=== PATIENT | female | born 1955 | race Caucasian/White ===

== ENCOUNTER → 2021-01-22 | Outpatient (CLI) | payer MEDICARE ==
--- NOTE | 2021-01-22 17:04 | RAD ---
EXAM: Lumbar spine, 2 views. HISTORY: Spondylolisthesis. COMPARISON: None. FINDINGS: Lateral flexion and extension views lumbar spine are obtained. There is 3 mm grade 1 cesar listhesis of L4 and L5 with extension which does not change with flexion. There is 2 mm grade 1 anter olisthesis of L3 on L4 with flexion which reduces to normal alignment with extension. There is multil evel endplate remodeling. There is facet arthropathy predominantly at the lumbosacral junction. There are few small endplate Schmorl's nodes. IMPRESSION: 1. Minimal grade 1 anterolisthesis of L4 and L5 which does not change between flexion and extension. 2. Minimal grade 1 anterolisthesis of L3 on L4 with flexion. 3. Multilevel degenerative change, primarily at the lumbosacral junction. Electronically signed by: Kim Thompson MD (01/22/2021 5:01 PM) [id number]
== END ==
LOC: RAD 15:00
PROVIDERS: ATTEND Neurological Surgery
DX: M47.817 Spondylosis without myelopathy or radiculopathy, lumbosacral region (principal); M43.16 Spondylolisthesis, lumbar region
CPT/HCPCS: 72120

== ENCOUNTER → 2021-01-29 | Outpatient (CLI) | payer MEDICARE ==
[~2021-01-29] MED LIST: ASPI-886 PO; ATEN25TA PO; CHOL10004 PO; CLON0.2T PO; CRAN200C2 PO; CRESTOR5 MG PO; DOCU-109 PO; ESCITALOPRAM OX20 MG PO; ESTR0.62 PO; GABA600T7 PO; LIDO5CRE9 TP; METF500T16 PO; OXYC-325 PO; OXYC5CAP PO; PHEN-444 PO; UBID50TA PO; ZOLP5TAB5 PO
--- NOTE | 2021-01-29 15:36 | EKG ---
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
[2021-01-29 15:54] LABS: BASO % 0 % (0-3); EOS # 0.1 x10^3/uL (0.0-0.7); EOS % 1 % (0-3); HEMATOCRIT 38.7 % (36.0-47.0); HEMOGLOBIN 13.1 g/dL (12.0-15.5); LYMPH # 1.4 x10^3/uL (1.0-4.8); LYMPH % 16 % (24-48); MEAN CORPUSCULAR HEMOGLOBIN 29 pg (25-35); MEAN CORPUSCULAR HGB CONC 34 g/dL (31-37); MEAN CORPUSCULAR VOLUME 86 fL (79-100); MONO # 0.6 x10^3/uL (0.0-1.1); MONO % 7 % (0-9); NEUT # 6.8 x10^3/uL (1.8-7.7); NEUT % 76 % (31-73); PLATELET COUNT 209 x10^3/uL (140-400); RED CELL DISTRIBUTION WIDTH 13.1 % (11.5-14.5); WHITE BLOOD COUNT 8.9 x10^3/uL (4.0-11.0)
[2021-01-29 16:10] LABS: ALBUMIN/GLOBULIN RATIO 0.8 (1.0-1.7); GFR 55.8; POTASSIUM 4.3 mmol/L (3.5-5.1); TOTAL BILIRUBIN 0.2 mg/dL (0.2-1.0); TOTAL PROTEIN 6.6 g/dL (6.4-8.2)
[2021-01-31 20:34] LABS: HEMOGLOBIN A1C 6.2 % (4.8-5.6)
== END ==
LOC: SURGPAT 13:44
PROVIDERS: ATTEND Neurological Surgery
DX: Z01.818 Encounter for other preprocedural examination (principal); M48.062 Spinal stenosis, lumbar region with neurogenic claudication; M54.16 Radiculopathy, lumbar region
CPT/HCPCS: 36415; 80053; 83036; 85025; 87641; 93005

== ENCOUNTER 2021-02-04 06:49 | Observation (INO) | payer MEDICARE ==
[2021-01-29 15:06] VITALS: BP 121/68
--- NOTE | 2021-01-31 13:17 | PREOP HP ---
DATE OF SERVICE: 02/04/2021 PREOPERATIVE HISTORY AND PHYSICAL HISTORY OF PRESENT ILLNESS: The patient is a pleasant 65-year-old who is having difficulty with low back pain and pain that radiates to her left hip and buttock and posterolateral thigh, stopping above the knee. She reports having problems with low back pain for years. She said the problem is slowly worsening. About a year ago, she developed left leg pain. She said her pain can reach 10/10. She said her pain is usually 4-6/10 and constant. Lying down or sitting in a car or walking makes the problem worse. Sitting with her legs elevated can help. She has been taking oxycodone for many years. She has had TENS unit, physical therapy, chiropractic treatment, lumbar epidural steroid injections, trigger point injections for many years. Recently, surgery was recommended, which was a decompression and instrumented fusion at L4-5 by another surgeon. CURRENT MEDICATIONS: Zolpidem, vitamin D3, rosuvastatin, Premarin, Percocet, metformin, lidocaine, gabapentin, clonidine, atenolol, aspirin. PAST MEDICAL HISTORY: Hypertension. PAST SURGICAL HISTORY: Hysterectomy and foot surgery. FAMILY HISTORY: Cancer, diabetes, hypertension, spine problems. SOCIAL HISTORY: Retired, , nonsmoker. ALLERGIES: SULFA, LATEX GLOVES. REVIEW OF SYSTEMS: A 12-point review of systems was performed and is noncontributory except that mentioned above. PHYSICAL EXAMINATION: GENERAL: Alert, pleasant, in no acute distress. HEAD: Normocephalic, atraumatic. SKIN: Warm and dry. MUSCULOSKELETAL: Lumbar paraspinal muscle bulk is normal, restricted range of motion of the lumbar spine, ensh-do-uhnysdvk tenderness at the lower lumbar spine with palpation, normal range of motion of the lower extremities bilaterally. EXTREMITIES: No clubbing, cyanosis or edema. NEUROLOGIC: Alert and oriented x 3. Normal recent and remote memory, strength is 5/5 in the lower extremities, sensory is intact to light touch in the lower extremities, reflexes were present and symmetric in the lower extremities bilaterally, negative straight leg raising bilaterally, normal gait. IMAGING: I reviewed a lumbar MRI scan from 01/17/2021. That study has trefoil type marked central spinal canal stenosis at L3-4 with marked left neural foraminal stenosis. At L4-5, there is moderate trefoil type canal stenosis and moderate left lateral recess stenosis. There is a slight anterolisthesis at L4-5. We also reviewed lumbar/flexion extension x-rays. There was no motion seen. ASSESSMENT AND PLAN: We have recommended a decompressive surgery at L3-4 and L4-5. We spoke about the surgery including the rationale, technique, risks and expected postoperative course. She understands and would like to proceed. GATO DR: Garland TID: [id number] [facility]
[~2021-02-04] VITALS: Ht 161.3 cm; Wt 82.4 kg
[~2021-02-04 06:49] MED LIST changes: +0.9 % SODIUM CHLORIDE 20 ML VIAL. IJ ONE; +DEXAMETHASONE SOD PHOS 4 MG/ML VIAL ONE; -DOCU-109 PO; +GLYCOPYRROLATE 1 MG/5 ML VIAL. ONE; +HYDROmorphone 2 MG/ML VIAL IVP PRN; +IV RINGERS,LACTATED 1000ML 1,000 ML IV SCH; +LIDOCAINE 2% PF 5 ML VIAL. ONE; +MIDAZOLAM HCL/PF 2 MG/2 ML VIAL. ONE; +MORPHINE SULFATE 2 MG/ML INJ. IVP PRN; +ONDANSETRON PF 4 MG/2 ML VIAL. ONE; +PHENYLEPHRINE 10 MG/ML VIAL. ONE; +PHENYLEPHRINE in 0.9% NACL PF 1 MG/10 ML SYRINGE. IV ONE; +PROCHLORPERAZINE 10 MG/2 ML VIAL. IVP PRN; +PROPOFOL 10 MG/ML (20ML) VIAL. IV ONE; +PROPOFOL 50 ML IV ONE; +REMIFENTANIL 1 MG VIAL. IV ONE; +ROCURONIUM 50 MG/5 ML VIAL. ONE; +ceFAZolin SODIUM 1 GM in IV NORMAL SALINE 1000ML BAG 1,000 ML IRR ONE; +fentaNYL PF VIAL 100 MCG/2 ML VIAL IVP PRN; +fentaNYL PF VIAL 100 MCG/2 ML VIAL ONE
[2021-02-04] MEDS ORDERED: GELATIN SPONGE SIZE 100. ONE (07:01)
[2021-02-04] MEDS ORDERED: THROMBIN TOPICAL 20,000 UNIT SPRAY.SYRN KIT TP ONE (07:01)
[2021-02-04] MEDS ORDERED: BUPIVACAINE-EPI 0.5%-1:200000 MPF 30 ML VIAL. ONE (07:01)
[2021-02-04] MEDS ORDERED: KETOROLAC 60 MG/2 ML VIAL. ONE (07:01)
[2021-02-04 07:10] VITALS: BP 141/74
[2021-02-04] MEDS ORDERED: HYDROmorphone 2 MG/ML VIAL ONE (07:34)
[2021-02-04] MEDS ORDERED: 0.9 % SODIUM CHLORIDE 20 ML VIAL. IJ ONE (07:35)
[2021-02-04] MEDS ORDERED: REMIFENTANIL 1 MG VIAL. IV ONE (08:04)
[2021-02-04] MEDS ORDERED: PROPOFOL 50 ML IV ONE (08:41)
[2021-02-04] MEDS ORDERED: SUGAMMADEX SODIUM 200 MG/2 ML VIAL. IVP ONE (10:00)
[2021-02-04] MEDS ORDERED: PROCHLORPERAZINE 10 MG/2 ML VIAL. ONE (11:43)
[2021-02-04] MEDS ORDERED: fentaNYL PF VIAL 100 MCG/2 ML VIAL ONE (11:43)
[2021-02-04] MEDS ORDERED: oxyCODONE/APAP 5/325 1 TAB TABLET PO PRN ×2 (11:45→12:00)
[2021-02-04] MEDS ORDERED: ZOLPIDEM 5 MG TABLET. PO PRN (11:45)
[2021-02-04] MEDS ORDERED: CALCIUM CARBONATE 500 MG TAB.CHEW PO PRN (12:00)
[2021-02-04] MEDS ORDERED: MAG HYDROX/ALUMINUM HYD/SIMETH 30 ML ORAL.SUSP PO PRN (12:00)
[2021-02-04] MEDS ORDERED: NALOXONE 0.4 MG/ML VIAL. IV PRN (12:00)
[2021-02-04] MEDS ORDERED: 0.9 % SODIUM CHLORIDE 10 ML DISP.SYRIN. IV PRN (12:00)
[2021-02-04] MEDS ORDERED: diphenhydrAMINE HCL 25 MG CAPSULE PO PRN (12:00)
[2021-02-04] MEDS ORDERED: ONDANSETRON PF 4 MG/2 ML VIAL. IVP PRN (12:00)
[2021-02-04] MEDS ORDERED: MAGNESIUM HYDROXIDE 2,400 MG/30 ML ORAL.SUSP. PO PRN (12:00)
[2021-02-04] MEDS ORDERED: METHOCARBAMOL 750 MG TABLET PO PRN (12:00)
[2021-02-04] MEDS ORDERED: ACETAMINOPHEN 325 MG TABLET. PO PRN (12:00)
[2021-02-04] MEDS ORDERED: hydrALAZINE 20 MG/ML VIAL. ONE (12:21)
[2021-02-04] MEDS ORDERED: hydrALAZINE 20 MG/ML VIAL. IVP PRN (12:30)
[2021-02-04] MEDS: fentaNYL PF VIAL 100 MCG/2 ML VIAL IVP PRN ×6 (12:39→22:35)
--- NOTE | 2021-02-04 12:40 | OP ---
DATE OF SURGERY: 02/04/2021 PREOPERATIVE DIAGNOSIS: Lumbar spinal stenosis with lateral recess stenosis, lumbar radiculopathy, left L4-L5 and L3-L4. POSTOPERATIVE DIAGNOSIS: Lumbar spinal stenosis with lateral recess stenosis, lumbar radiculopathy, left L4-L5 and L3-L4.. OPERATION PERFORMED: Hemilaminotomy with microdecompression of dura and nerve root, L4-L5 and L3-L4. The operation was done with EMG, SSEP monitoring, fluoroscopy, microscopic dissection. SPECIMEN: Decompression. SURGEON: Adrien Brown M.D. HEAD FIELD HOCKEY COACH: SHARLA Hardy, assisted with the surgery. She assisted with the exposure, the microdecompression as well as the closure. OPERATIVE INDICATIONS: The patient is a very pleasant 65-year-old who developed intractable back and left leg pain, which failed conservative measures. She had above-mentioned findings on imaging studies and I recommended lumbar microsurgical decompression. I discussed with her the surgery and the risks involved. She understood she wished to go ahead. DESCRIPTION OF PROCEDURE: Following general endotracheal anesthesia, the patient was positioned prone on the [place] table. Lumbar region prepped and draped in standard fashion. ANNA hose and AV impulse boots were applied for DVT prophylaxis. A microscope was draped, fluoroscopy was draped and brought into the field. Monitoring was established. Ancef 2 grams given less than one hour prior to the initiation of surgery. Using fluoroscopic guidance, an incision was made extending from mid L3 to mid L5, I dissected the skin and subcutaneous tissue. I incised the lumbodorsal fascia and reflected the paraspinal muscles. I placed a [place] microdisk retractor, brought in the microscope on the left side at L4-L5, I burred down a very generous hemilaminotomy. I grasped the very thickened ligamentum flavum and peeled this away and fully decompressed the region. I did work medially as far as I was able and I did perform partial foraminotomy. There was considerable thickened hypertrophic bone and ligament compressing down on the dura. This was relieved. The dura moved back nicely. I did use small amounts of bone wax during the procedure as well as bipolar cautery. We then removed the L3-L4. In similar fashion, I performed a generous hemilaminotomy, trimmed away thickened ligamentum flavum. The dura moved back nicely. I did perform partial foraminotomy. I irrigated copiously with antibiotic solution. I explored carefully. There was no compression of the nerve root. The disc was very firm at both levels and no discectomy was warranted. I irrigated copiously with antibiotic solution again removing the retractor and obtaining hemostasis in the muscle. I then closed the wound in layers with absorbable suture and the skin was closed with 4-0 subcuticular stitch and surgery went very well. VIVIEN DR: Criss TID: [id number] [facility]
[2021-02-04] MEDS ORDERED: LIDOCAINE TP SCH (14:00)
[2021-02-04] MEDS: PHENAZOPYRIDINE 200 MG TABLET. PO SCH ×2 (14:00→18:07)
[2021-02-04] MEDS: GABAPENTIN 300 MG CAPSULE. PO SCH ×2 (14:21→20:29)
[2021-02-04 14:30] VITALS: BP 148/72
[2021-02-04] MEDS ORDERED: FLU VACC QUAD 21-22 (6MOS+) PF 0.5 ML SYRINGE. VAX IM ONE (15:00)
[2021-02-04] MEDS ORDERED: POTASSIUM CL 20MEQ D5-0.45NACL 1,000 ML IV SCH (15:00)
[2021-02-04] MEDS: oxyCODONE/APAP 5/325 1 TAB TABLET PO PRN ×2 (15:22→16:00)
[2021-02-04] MEDS: cloNIDine HCL 0.2 MG TABLET PO SCH ×2 (15:50→20:30)
[2021-02-04 19:00] VITALS: BP 149/97
[2021-02-04] MEDS: DOCUSATE SODIUM 100 MG CAPSULE. PO SCH (20:30)
[2021-02-04] MEDS ORDERED: ATENOLOL 25 MG TABLET. PO SCH (21:00)
[2021-02-04] MEDS ORDERED: NON FORMULARY ITEM (Cranberry Extract (Cranberry) 200 MG) PO SCH (21:00)
[2021-02-04] MEDS: ZOLPIDEM 5 MG TABLET. PO PRN ×2 (21:26→22:26)
[2021-02-04 23:00] VITALS: BP 146/83
[2021-02-05 03:00] VITALS: BP 129/67
[2021-02-05] MEDS: GABAPENTIN 300 MG CAPSULE. PO SCH (05:52)
[2021-02-05] MEDS: fentaNYL PF VIAL 100 MCG/2 ML VIAL IVP PRN ×2 (05:53→10:17)
[2021-02-05 07:00] VITALS: BP 182/84
[2021-02-05] MEDS ORDERED: DOCU-109 PO (07:46)
--- NOTE | 2021-02-05 07:50 | DISCH ---
DISCHARGE INSTRUCTIONS Condition on Discharge Condition on Discharge: Stable Activity After Discharge Activity Instructions for Disc: Activity as tolerated, Avoid exertion Other activity instructions: no driving for a week Bathing Instructions: Shower-keep dressing dry, No Tub Bath until see Lifting Instructions after Dis: No heavy lifting, No pulling or pushing, Do not lift >10 pounds Diet after Discharge Additional Diet Restrictions: resume home diet Wound Incision Care Wound/Incision Care: Ice to area for comfort Other wound/incision instructi: may remove dressing in 48 hours if dry, leave steri strips in place Contacting the after DC Call your doctor for: Concerns you may have Follow-Up Follow up with: Dr. Garcia's nurse in 2 weeks [phone] JUANCHO GARCIA MD Feb 05, 2021 07:50
[2021-02-05] MEDS: DOCUSATE SODIUM 100 MG CAPSULE. PO SCH (08:03)
[2021-02-05 08:08] VITALS: BP 182/84
[2021-02-05] MEDS: cloNIDine HCL 0.2 MG TABLET PO SCH (08:08)
[2021-02-05] MEDS ORDERED: NON FORMULARY ITEM (Ubidecarenone (Coq10) 100 MG) PO SCH (09:00)
[2021-02-05] MEDS ORDERED: metFORMIN 500 MG TABLET PO SCH (09:00)
[2021-02-05] MEDS ORDERED: ASPIRIN ENTERIC COATED 81 MG TABLET.DR. PO SCH (09:00)
[2021-02-05] MEDS: PHENAZOPYRIDINE 200 MG TABLET. PO SCH (09:00)
[2021-02-05] MEDS ORDERED: ESTROGENS, CONJUGATED 0.625 MG TABLET PO SCH (09:00)
[2021-02-05] MEDS ORDERED: CITALOPRAM 20 MG TABLET. PO SCH (09:00)
[2021-02-05] MEDS ORDERED: ATENOLOL 25 MG TABLET. PO SCH (09:00)
--- NOTE | 2021-02-05 10:57 | NUR ---
Pt discharging home with self care. Discharge instructions discussed. Pain meds administered. IV removed. Surgical dressing changed. Pt assisted to wheelchair and was secured in car with family.
--- NOTE | 2021-02-05 17:06 | PATHOLOGY ---
[facility] Accession Number: [id number] . 01 Material submitted: . vertebral column - LUMBAR DECOMPRESSION . 02 Diagnosis: Segments of fibrocartilaginous tissue and bone, lumbar decompression: - Degenerative changes of fibrocartilaginous tissue. ([facility]; 02/05/2021) [facility] 02/05/2021 1402 Local . 02 Comment: There is no evidence of an acute inflammatory process or malignancy. ([facility]; 02/05/2021) . 02 Electronically signed: . Cholo Clarke MD, Pathologist NPI- [id number] . 01 Gross description: . The specimen is received in formalin, labeled "Uma Mckeon, lumbar decompression". Received are multiple segments of pale frias to pink-frias fibrous tissue admixed with fragments of gritty bone measuring 4.8 x 3.5 x 1.0 cm in aggregate dimensions. The specimen is submitted off premise service representative lesion cassette A1, following light decalcification. ([facility]; 02/04/2021) [facility] 02/04/2021 1725 Local . 02 Pathologist provided ICD-10: M54.50, M99.53, M54.10 . 02 CPT . 224691, [id number] Specimen Comment: A courtesy copy of this report has been sent to [phone] Specimen Comment: Report sent to Specimen Comment: A duplicate report has been generated due to demographic updates. Performed at: [facility] [address], [place] [id number] MD Obie Haynes MD Phone: [phone] Performed at: [facility] [address] [place], [place] [id number] MD Cholo Clarke MD Phone: [phone]
== END 2021-02-05 10:30 | disposition home or self-care (01) ==
LOC: SURG 06:49 → 4 NORTH 11:47
PROVIDERS: ADMIT Neurological Surgery; ATTEND Neurological Surgery
DX: M48.061 Spinal stenosis, lumbar region without neurogenic claudication (principal); M54.16 Radiculopathy, lumbar region; I10 Essential (primary) hypertension; Z23 Encounter for immunization; Z90.710 Acquired absence of both cervix and uterus; Z79.899 Other long term (current) drug therapy; Z98.890 Other specified postprocedural states
CPT/HCPCS: 63030; 63035; 82962; 90471; 90686; 96374; 96376; 97116; 97162; 97530; A4213; A4364; A4930; A6254; A6258; G0378; G0379; J0360; J0690; J1100; J1170; J1885; J2250; J2370; J2405; J2704; J3010; J3490; J7030; 76000; A4222; A4223; A4452; A4657; J0780